=== PATIENT | male | born 1985 | race Two or more races ===

== ENCOUNTER 2017-10-02 12:50 | Emergency (ER) | payer OTHER ==
[~2017-10-02] VITALS: Ht 170.2 cm; Wt 140.7 kg
[~2017-10-02 12:50] MED LIST: ZANTAC150 MG PO
[2017-10-02] MEDS ORDERED: NAPROXEN500 MG PO (14:26)
[2017-10-02 14:38] VITALS: BP 129/94
== END 2017-10-02 14:39 | disposition home or self-care (01) ==
LOC: EME 12:50
DX: S43.401A Unspecified sprain of right shoulder joint, initial encounter (principal); W19.XXXA Unspecified fall, initial encounter; Y93.61 Activity, american tackle football; F17.200 Nicotine dependence, unspecified, uncomplicated
CPT/HCPCS: 73030; 99281; 99284